=== PATIENT | female | born 1955 | race Caucasian/White ===

== ENCOUNTER → 2017-11-30 | Outpatient (CLI) | payer BC ==
--- NOTE | 2017-12-11 10:45 | RSPPFT ---
DATE OF PROCEDURE: 11/30/17 COMMENTS: VOLUMES DYNAMIC: FVC and FEV1 mildly reduced. STATIC: FRC, RV and TLC mildly reduced. FLOWS: FEV1% normal; FEF 25-75 severely reduced. DIFFUSION: Normal. FLOW VOLUME LOOP: Terminal airflow obstruction. IMPRESSION: Mild obstructive ventilatory defect with no significant hyperinflation, in fact, she has a mild restrictive defect as well and no reduction in diffusion. There is significant improvement post-bronchodilator.
== END ==
LOC: PHRSP 08:25
PROVIDERS: ATTEND Internal Medicine Cardiovascular Disease
DX: R06.02 Shortness of breath (principal)
CPT/HCPCS: 94060; 94729